=== PATIENT | female | born 1975 | race Two or more races ===

== ENCOUNTER → 2025-08-27 | Outpatient (CLI) | payer OTHER, SELFPAY ==
--- NOTE | 2025-08-27 14:05 | XR_ITS ---
Examination: Lumbar spine, 5 views Technique: Lumbar spine AP, lateral, coned lateral lower lumbar spine, bilateral obliques 5 views Exam date and time: August 27, 2025, 1453 hours INDICATIONS: Injury to lower back 7 days ago, back pain. FINDINGS: Lumbar levoscoliosis 8 degrees No acute lumbar fracture No significant lumbar disc narrowing IMPRESSION: No acute lumbar fracture
--- NOTE | 2025-08-27 14:05 | XR_ITS ---
Examination: Left hip AP, lateral, AP pelvis 3 views Technique: Hip AP lateral, AP pelvis, 3 views Exam date and time: August 27, 2025, 1452 hours INDICATIONS: Injury to the hip 7 days ago, hip pain. FINDINGS: No acute left hip fracture or dislocation Right hip bones of the pelvis intact No significant arthritic change IMPRESSION: No acute hip or pelvic fracture.
== END | disposition home or self-care (01) ==
LOC: CDIM 13:26
PROVIDERS: PCP Family Medicine; Referring Provider Physician Assistant; Visit Provider Physician Assistant
DX: S79.912A Unspecified injury of left hip, initial encounter (principal); S39.92XA Unspecified injury of lower back, initial encounter; X58.XXXA Exposure to other specified factors, initial encounter
CPT/HCPCS: 72110; 73502